=== PATIENT | male | born 1985 | race Caucasian/White ===

== ENCOUNTER 2019-01-25 07:05 | Outpatient (CLI) | payer BC ==
--- NOTE | 2019-01-25 07:39 | ULT ---
Urinary bladder sonogram HISTORY: Polyuria. FINDINGS: Urinary bladder has a normal appearance. Each ureteral jet is documented with Doppler evalu ation. No free fluid within the pelvis. IMPRESSION: Normal exam.
== END 2019-01-25 07:06 | disposition home or self-care (01) ==
LOC: SCSULT 07:05
PROVIDERS: ATTEND Family Medicine
DX: R35.8 Other polyuria (principal)
CPT/HCPCS: 76856

== ENCOUNTER 2021-08-03 09:46 | Day surgery (SDC) | payer BC ==
[2021-07-31 10:48] VITALS: BMI 33.5
[2021-08-03] MEDS ORDERED: Midazolam HCl 2 mg/2 ml Vial ONE (11:46)
[2021-08-03] MEDS ORDERED: Fentanyl 100 MCG/2 ML VIAL ONE (11:47)
[2021-08-03] MEDS ORDERED: Levofloxacin 500 mg/D5W 100 ml Premix Bag ONE (12:02)
[2021-08-03] MEDS ORDERED: Iothalamate Meglumine 60% 50 ML VIAL FS ONE (12:03)
[2021-08-03] MEDS ORDERED: Ketorolac Tromethamine 30 MG/ML VIAL ONE (12:07)
[2021-08-03] MEDS ORDERED: Dexamethasone 20 MG/5 ML VIAL ONE (12:07)
[2021-08-03] MEDS ORDERED: Ondansetron PF 4 MG/2 ML Vial ONE (12:07)
[2021-08-03] MEDS ORDERED: Lidocaine 1% PF 5 ML VIAL ONE (12:07)
[2021-08-03] MEDS ORDERED: PROPOFOL 200 MG/20 ML VIAL ONE (12:07)
[2021-08-03] MEDS ORDERED: Phenazopyridine HCl 100 MG TAB ONE (13:12)
[2021-08-03] MEDS ORDERED: Oxybutynin 5 MG TAB ONE (13:12)
== END 2021-08-03 14:50 | disposition home or self-care (01) ==
LOC: SDC 09:46
PROVIDERS: ATTEND Urology
DX: N13.2 Hydronephrosis with renal and ureteral calculous obstruction (principal); R39.14 Feeling of incomplete bladder emptying; Z79.899 Other long term (current) drug therapy
CPT/HCPCS: 74420; 82365; 88300; C2617; J1100; J1885; J1956; J2250; J2405; J2704; J3010; Q9961-U8

== ENCOUNTER 2021-08-20 07:29 | Outpatient (CLI) | payer BC | END 2021-08-20 07:30 | disposition home or self-care (01) | LOC: BICULT 07:29 | PROVIDERS: ATTEND Urology | DX: N20.0 Calculus of kidney (principal) | CPT/HCPCS: 76770 ==